=== PATIENT | male | born 1965 | race Caucasian/White ===

== ENCOUNTER 2020-01-06 18:44 | Emergency (ER) | payer MEDICARE, SELFPAY ==
[2020-01-06 18:52] VITALS: BP 170/104; PULSE 110; RESP 28; TEMP 36.5; O2SAT 95; BMI 37.6
--- NOTE | 2020-01-06 19:03 | ED_ITS ---
Entered by Kaylin Wadsworth, acting as scribe for Billy Magallanes DO Jan 06, 2020 18:44 HPI - SOB/Dyspnea General: Chief Complaint: Shortness of Breath/Dyspnea Stated Complaint: cough/sob Time Seen by Provider: 01/06/20 18:53 Source: patient Mode of arrival: ambulatory Limitations: no limitations History of Present Illness: HPI Narrative: 54 yo m came to the er pov for shortness of breath and cough. Onset was dec 02. Pt states that he has been to the doctor alot to try to knock it. Pt said that he coughs so hard somtimes that he feels like he passes out. It is a productive cough with wheezing. MD elicited complaint: shortness of breath and cough Onset (ago): week(s) (5 weeks ago) Timing: constant Severity: mild Exacerbating factors: lying flat Relieving factors: nothing Associated symptoms: Reports chest congestion, cough, dizziness and orthopnea; Deny abdominal pain, chest pain, fever(s), nausea, palpitations or vomiting Treatment prior to arrival: none Related Data: Home oxygen amount: none Review of Systems General: Reports: other (negative unless marked) Const: Denies: fever or chills Eyes: Denies: change in vision or blurry vision ENMT: Reports: post nasal drip; Denies: painful swallowing, swelling of lips/tongue or facial/sinus pain Card: Reports: shortness of breath on exertion and shortness of breath when lying down; Denies: chest pain, palpitations, irregular heart rhythm, edema or swelling of feet/ankles Resp: Reports: productive cough, wheezing and chest congestion GI: Denies: abdominal pain, nausea, vomiting, blood in stool or black tarry stool : Denies: difficulty urinating Musc: Denies: neck pain or back pain Skin/Breast: Denies: rash, itching or redness Neuro: Reports: headache and dizziness; Denies: vertigo or confusion Psych: Denies: anxiety PFSH ED PFSH: Social History Smoking and tobacco status: never smoked Physical Exam Const: GENERAL APPEARANCE: well developed ORIENTATION/CONSCIOUSNESS: Yes oriented to person, Yes oriented to place and Yes oriented to time HENMT: COMMON NORMALS: external ears normal and external nose normal NOSE: external nose normal and no nasal discharge EXTERNAL EAR: Yes external ears normal MOUTH: tongue normal TEETH & GINGIVA: no abnormal tooth and associated gingiva THROAT: posterior oropharynx normal; no peritonsillar mass Eye: COMMON NORMALS: PERRL, EOMs intact bilaterally and conjunctivae normal EYELID: eyelids normal CONJUNCTIVA: Yes conjunctivae normal PUPIL: Yes PERRL Neck/C-Spine: GENERAL: No tracheal deviation Chest: COMMONS NORMALS: inspection of chest normal CHEST: No tenderness Resp: EFFORT & INSPECTION: Yes audible wheezes AUSCULTATION: no rhonchi, wheezes and lung sounds not diminished Cardio: COMMON NORMALS: regular rate and regular rhythm RATE: regular rate RHYTHM: regular rhythm HEART SOUNDS: no murmurs PERIPHERAL PULSES: radial pulses present GI: INSPECTION: No abdominal distension AUSCULTATION: No hyperactive bowel sounds and No hypoactive bowel sounds PALPATION: No guarding and No rigid PERCUSSION: no dullness to percussion and no tympanic to percussion Neuro: SENSORIUM/ORIENTATION: Yes oriented to person, Yes oriented to place and Yes oriented to time Psych: COMMON NORMALS: mental status grossly normal Skin: COMMON NORMALS: no rashes or lesions noted GENERAL SKIN EXAM: no rashes or lesions noted Course Vital Signs: Vital signs: Vital Signs Temperature 97.7 F 01/06/20 18:52 Pulse Rate 101 H 01/06/20 21:06 Respiratory Rate 18 01/06/20 21:06 Blood Pressure 120/97 01/06/20 21:06 Pulse Oximetry 96 01/06/20 21:06 MDM - SOB/Dyspnea MDM Narrative: Medical decision making narrative: Has improved each time he was treated with steroids, then rebounded following discontinuation. He will be treated with doxycycline for 10 days as well as a slow taper of prednisone which I think will help. His chest x-ray is normal. His labs are benign. Lab Data: Labs: Lab Results 01/06/20 01/06/20 01/06/20 Range/Units 19:39 19:53 19:53 WBC 8.0 (4.0-10.0) 10^3/ uL RBC 5.11 (4.1-5.3) 10^6/u L Hgb 14.6 (11.7-16.6) g/dL Hct 44.4 (42.0-52.0) % MCV 86.9 (80-94) fL MCH 28.6 (28.0-34.0) pg MCHC 32.9 (30.0-36.0) g/dL RDW 12.1 (12.1-15.1) % Plt Count 241 (130-400) 10^3/c mm MPV 8.8 (7.4-10.4) fL Neut % (Auto) 53.4 % Lymph % (Auto) 20.9 % Gonzales % (Auto) 8.8 % Eos % (Auto) 16.3 % Baso % (Auto) 0.5 % Neut # (Auto) 4.3 (1.8-7.7) 10^3/u L Lymph # (Auto) 1.7 (0.8-4.8) 10^3/u L Gonzales # (Auto) 0.7 (0.2-0.9) 10^3/u L Eos # (Auto) 1.3 H (0.0-0.8) 10^3/u L Baso # (Auto) 0.0 (0.0-0.1) 10^3/u L Nucleated RBC % (a uto) 0 % Nucleated RBCs # 0.0 /100WBC Sodium 137 (136-145) mmol/L Potassium 4.2 (3.5-5.1) mmol/L Chloride 100 (98-107) mmol/L Carbon Dioxide 24 (22-29) mmol/L Anion Gap 17.2 (5-19) BUN 17 (6-20) mg/dL Creatinine 1.1 (0.7-1.2) mg/dL GFR Calculation 70.0 L (90-130) mL/min Glucose 113 (65-115) mg/dL Calcium 10.1 (8.5-10.5) mg/dL Total Bilirubin 0.3 (0.15-1.2) mg/dL AST 25 (0-40) U/L ALT 30 (0-41) U/L Alkaline Phosphata se 114 (40-130) IU/L NT-Pro-B Natriuret Pep 5 (0-125) pg/mL Total Protein 7.4 (6.6-8.7) g/dL Albumin 4.4 (3.5-5.2) g/dL Globulin 3.0 (1.3-4.6) g/dL Influenza Type A A g Negative (Negative) POC Influenza B Ag Negative (Negative) Discharge Plan Discharge Patient Disposition: Home, Self-Care Clinical Impression: Acute exacerbation of chronic obstructive airways disease Condition: Stable Prescriptions: New prednisone 10 mg tablet 10 mg PO DIRECTED Qty: 50 RF: 0 doxycycline hyclate 100 mg capsule 100 mg PO BID 10 Days Qty: 20 RF: 0 No Action Advair Diskus 250-50 mcg/dose Blister With Device 1 inh INHALATION BID RF: 0 levothyroxine 50 mcg Tablet 50 mcg PO DAILY RF: 0 ibuprofen 200 mg Tablet 400 mg PO DAILY RF: 0 albuterol sulfate 90 mcg/actuation Hfa Aerosol Inhaler 1 inh INHALATION QID PRN (Reason: Shortness Of Breath) RF: 0 Discharge Orders: Discharge Order (Routine); Ordered 01/06/20 Ordered By: Billy Magallanes Referrals: Elena Cardoso MD [Primary Care Provider] - 4-7 days Discharge Diet: Usual diet Discharge Activity: Increase activity as tolerated Patient Instructions: Acute Bronchitis (ED) Discharge Date/Time: 01/06/20 21:06 Coding Level of Care Code ED Administrative Fellow for Chg Fwd Exam Problem Focused The documentation recorded by the Ananth nicole Stephanie Lyn, dinesh wallis flects the service I personally performed and the decisions made by Elpidio hernandez Jeremy John, DO Jan 06, 2020 18:44
--- NOTE | 2020-01-06 19:19 | ECG_ITS ---
Measurements Intervals [place] Rate: 102 P: 59 [place]: 158 QRS: 55 QRSD: 103 T: 55 QT: 325 QTc: 425 SINUS TACHYCARDIA ABNORMAL RHYTHM ECG No previous ECG available for comparison Electronically Signed On 01-07-2020 19:46:31 CDT by Isidro Brown M.D. [email or web address]
--- NOTE | 2020-01-06 19:20 | XR_ITS ---
WS: [id number] XR chest 2V* [id number] REASON FOR EXAM: cough FINDINGS: The heart and mediastinal interfaces are normal. Lung hernandez are well aerated. No pneumonia, pleural effusion, pulmonary edema, or mass effect. No pneumothorax. The hilum and apices normal. No osseous abnormalities. A small calcified granulomas seen in the right lower lung There is previous rib fractures and the lower left chest. XR/XR chest 2V* [id number] IMPRESSION: Negative chest for active pathology.
[2020-01-06] MEDS: ipratropium-albuterol 3 mL Neb INHALATION (19:45)
[2020-01-06 19:46] VITALS: PULSE 116; RESP 22; O2SAT 95
[2020-01-06 19:52] VITALS: BP 140/71; PULSE 122; RESP 20; O2SAT 95
[2020-01-06 19:54] VITALS: PULSE 113; RESP 20; O2SAT 93
[2020-01-06 19:58] LABS: Basophils % 0.5 %; Eosinophils # 1.3 10^3/uL (0.0-0.8); Eosinophils % 16.3 %; Hematocrit 44.4 % (42.0-52.0); Hemoglobin 14.6 g/dL (11.7-16.6); Lymphocytes # 1.7 10^3/uL (0.8-4.8); Lymphocytes % 20.9 %; Mean Corpuscular HGB Conc 32.9 g/dL (30.0-36.0); Mean Corpuscular Hemoglobin 28.6 pg (28.0-34.0); Mean Corpuscular Volume 86.9 fL (80-94); Mean Platelet Volume 8.8 fL (7.4-10.4); Monocytes # 0.7 10^3/uL (0.2-0.9); Monocytes % 8.8 %; Neutrophils # 4.3 10^3/uL (1.8-7.7); Neutrophils % 53.4 %; Nucleated Red Blood Cells % 0 %; Platelet Count 241 10^3/cmm (130-400); Red Blood Count 5.11 10^6/uL (4.1-5.3); Red Cell Distribution Width 12.1 % (12.1-15.1)
[2020-01-06 20:17] LABS: Influenza A by IFA Negative (Negative); Influenza B by IFA Negative (Negative)
[2020-01-06 20:24] LABS: Alanine Aminotransferase 30 U/L (0-41); Albumin Level 4.4 g/dL (3.5-5.2); Alkaline Phosphatase 114 IU/L (40-130); Anion Gap 17.2 (5-19); Aspartate Amino Transferase 25 U/L (0-40); Blood Urea Nitrogen 17 mg/dL (6-20); Calcium 10.1 mg/dL (8.5-10.5); Carbon Dioxide 24 mmol/L (22-29); Chloride 100 mmol/L (98-107); Glucose 113 mg/dL (65-115); NT Pro B Type Natriuretic Pept 5 pg/mL (0-125); Potassium 4.2 mmol/L (3.5-5.1); Sodium 137 mmol/L (136-145); Total Bilirubin 0.3 mg/dL (0.15-1.2); Total Protein 7.4 g/dL (6.6-8.7)
[2020-01-06] MEDS: doxycycline 100 mg Tablet PO (20:58)
[2020-01-06 21:00] VITALS: BP 120/87; RESP 106; O2SAT 94
[2020-01-06 21:06] VITALS: BP 120/97; PULSE 101; RESP 18; O2SAT 96
== END 2020-01-06 21:06 | disposition home or self-care (01) ==
PROVIDERS: Emergency Provider Emergency Medicine; Family Provider Internal Medicine; PCP Internal Medicine
DX: J44.1 Chronic obstructive pulmonary disease with (acute) exacerbation (principal); R00.0 Tachycardia, unspecified; R94.31 Abnormal electrocardiogram [ECG] [EKG]
CPT/HCPCS: 12345; 36415; 71046; 80053; 83880; 85025; 87804; 93005; 94640; 96374; 96375; 99283; J2930

== ENCOUNTER 2020-02-29 21:08 | Emergency (ER) | payer MEDICARE, SELFPAY ==
[2020-02-29 21:25] VITALS: BP 154/92; PULSE 101; RESP 14; TEMP 37.7; O2SAT 94; BMI 36.2
--- NOTE | 2020-02-29 21:30 | XR_ITS ---
WS: [id number] PORTABLE CHEST HISTORY: cough COMPARISON: 01/06/2020 Benign granuloma RIGHT lung base. Otherwise lungs are clear. No pleural effusion or pneumothorax. Cardiac size: Normal. Mediastinum/Aorta: Normal mediastinum. No osseous abnormality seen. XR/XR chest 1V portable [id number] IMPRESSION: Unremarkable portable chest.
--- NOTE | 2020-02-29 21:48 | ED_ITS ---
HPI - SOB/Dyspnea General: Chief Complaint: Shortness of Breath/Dyspnea Stated Complaint: sob Time Seen by Provider: 02/29/20 21:30 History of Present Illness: HPI Narrative: Foreign is a nice 55-year-old male who comes in complaining of a flareup of his chronic bronchitis. He states he has a cough productive of green sputum and wheezing. He states this is been going on for the past several days. 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 He denies any fever or chills. He has no chest pain. He is really not short of breath he just hears himself wheezing and his cough is worse than normal. Breathing treatments at home have helped but have not resolved his symptoms. He again denies any fever. He denies any chest pain. He is requesting steroids at this time so that he can get better as that is what it is taken in the past. Associated symptoms: Deny abdominal pain, chest pain, diaphoresis, dizziness, extremity pain, fever(s), hemoptysis, nausea, orthopnea, palpitations, polydipsia, syncope or vomiting Review of Systems General: Reports: other (negative unless marked) Const: Denies: fever, chills, body aches, fatigue, malaise or diaphoresis Eyes: Denies: change in vision or blurry vision ENMT: Denies: throat pain, painful swallowing, hoarseness, ear pain, ear discharge, Change in hearing or nasal discharge Card: Denies: chest pain, palpitations, irregular heart rhythm, syncope, pre- syncope, shortness of breath on exertion or shortness of breath when lying down Resp: Reports: productive cough and wheezing; Denies: shortness of breath, non-productive cough or coughing up blood GI: Denies: abdominal pain, nausea, vomiting, vomiting blood, coffee grounds in vomit, diarrhea, constipation, cramping, blood in stool or black tarry stool : Denies: flank pain, difficulty urinating, painful urination, urinary frequency, urinary urgency, decreased urine ouput, urinary incontinence or blood in urine Musc: Denies: neck pain, back pain, extremity pain, extremity swelling, joint pain, joint swelling, joint warmth or joint stiffness Skin/Breast: Denies: rash, skin tenderness or yellow skin Neuro: Denies: headache, numbness in extremities, weakness in extremities, changes in sensation, lack of coordination, difficulty walking, dizziness, vertigo or confusion Endo: Denies: excessive thirst, tired all the time, cold intolerance, excessive sweating, flushing or hot flashes Jonathan/Lymph: Denies: easy bruising, easy bleeding, petechiae or enlarged lymph nodes All/Imm: Denies: hives, throat swelling, tongue swelling, facial swelling or acute wheezing PFSH ED PFSH: Medical History COPD (chronic obstructive pulmonary disease) Hypothyroidism Social History Smoking and tobacco status: never smoked Physical Exam Const: COMMON NORMALS: no apparent distress, oriented x3, no limitations, healthy appearing and well nourished EXAM LIMITATIONS: no altered mental status GENERAL APPEARANCE: cooperative, well kempt and well developed ORIENTATION/CONSCIOUSNESS: Yes awake HENMT: COMMON NORMALS: normocephalic, head/scalp atraumatic, hearing grossly normal bilaterally, external ears normal, EAC's normal, external nose normal and moist oral mucous membranes HEAD & SCALP: normal to inspection, normocephalic and atraumatic FACE & SINUS: normal facial exam and face symmetric NOSE: external nose normal and nares normal EXTERNAL EAR: Yes external ears normal EXTERNAL AUDITORY CANAL: EAC's normal MOUTH: oral and palatal mucosa normal and tongue normal Eye: COMMON NORMALS: PERRL, EOMs intact bilaterally, conjunctivae normal and no scleral icterus GENERAL EYE: normal appearance of both eyes and normal light reflex CONJUNCTIVA: Yes conjunctivae normal SCLERA: sclerae normal CORNEA: Yes corneas normal PUPIL: Yes PERRL DIRECT OPHTHALMOSCOPY: Yes normal light reflex Neck/C-Spine: COMMON NORMALS: full ROM, no lymphadenopathy, supple, no meningeal signs and no JVD GENERAL: Yes normal visual inspection and Yes trachea midline CERVICAL SPINE: Yes cervical ROM normal Chest: COMMONS NORMALS: inspection of chest normal and palpation of chest normal Resp: COMMON NORMALS: normal respiratory effort, no retractions and no use of accessory muscles EFFORT & INSPECTION: Yes able to speak in complete sentences and Yes audible wheezes AUSCULTATION: rhonchi and wheezes Cardio: COMMON NORMALS: no JVD, regular rate, regular rhythm, S1 normal heart sound, S2 normal heart sound, no gallops, no clicks, no murmurs and no rub JUGULAR VENOUS DISTENTION: no JVD RATE: regular rate RHYTHM: regular rhythm HEART SOUNDS: S1 normal and S2 normal GI: COMMON NORMALS: soft to palpation, non-tender, no hepatosplenomegaly and no masses INSPECTION: Yes normal to inspection PALPATION: Yes soft and Yes no hepatosplenomegaly : COMMON NORMALS: Yes no CVA tenderness BLADDER/KIDNEY EXAM: Yes no CVA tenderness Back/Pelvis: COMMON NORMALS: no CVA tenderness, thoracic and lumbar spine normal to inspection, no thoracic nor lumbar tenderness and thoraco-lumbar ROM normal Extremity: COMMON NORMALS: normal to inspection, full ROM, normal capillary r efill, no joint enlargement, no clubbing, cyanosis or edema and no calf tenderness Neuro: COMMON NORMALS: oriented x3, CN's II-XII intact bilaterally, moves all extremities, no focal motor deficits and no sensory deficits noted MENINGEAL SIGNS: Yes no meningeal signs Psych: COMMON NORMALS: mental status grossly normal, thought process normal, cooperative, affect normal, speech normal and activity/motor behavior normal APPEARANCE: Yes well kempt SPEECH: Yes normal speech THOUGHT PROCESS: normal thought process Skin: COMMON NORMALS: no rashes or lesions noted, skin turgor normal, no jaundice, no petechiae and no mottling GENERAL SKIN EXAM: no rashes or lesions noted and turgor normal Course Vital Signs: Vital signs: Vital Signs Temperature 99.8 F H 02/29/20 21:25 Pulse Rate 88 02/29/20 23:15 Respiratory Rate 16 02/29/20 23:15 Blood Pressure 134/86 02/29/20 23:15 Pulse Oximetry 98 02/29/20 23:15 MDM - SOB/Dyspnea MDM Narrative: Medical decision making narrative: Mr. Leyva is a very nice 55-year-old male who comes in complaining of a cough productive of green sputum which is a change from his baseline. He has wheezing but that is improved with a breathing treatment here. He declines any cardiac work-up and believes he could just go home with some steroids and an antibiotic. I will place him on doxycycline, prednisone and he Myles has an inhaler at home that he is using more frequently. He understands he is welcome to return should his symptoms change or worsen or he want further evaluation and care. Imaging Data^: CXR: My impression: No acute cardiopulmonary findings. No focal infiltrates. EKG Data^: EKG 1: Attestation: I personally reviewed and interpreted this EKG as follows: EKG Interpretation Date: 02/29/20 EKG interpretation time: 22:29 Interpretation: Normal sinus rhythm at 91 beats a minute, normal intervals, no blocks. PVC present. No acute ST or T wave changes. Discharge Plan Discharge Patient Disposition: Home, Self-Care Clinical Impression: COPD (chronic obstructive pulmonary disease) Qualifiers: COPD type: chronic bronchitis Chronic bronchitis type: mucopurulent Qualified Code(s): J41.1 - Mucopurulent chronic bronchitis Condition: Stable Prescriptions: New doxycycline hyclate 100 mg capsule 100 mg PO BID 10 Days Qty: 20 RF: 0 prednisone 10 mg tablets,dose pack See Rx Instructions .ROUTE .COMPLEX Qty: 21 RF: 0 No Action Advair Diskus 250-50 mcg/dose Blister With Device 1 inh INHALATION BID RF: 0 levothyroxine 50 mcg Tablet 50 mcg PO DAILY RF: 0 ibuprofen 200 mg Tablet 400 mg PO DAILY RF: 0 albuterol sulfate 90 mcg/actuation Hfa Aerosol Inhaler 1 inh INHALATION QID PRN (Reason: Shortness Of Breath) RF: 0 prednisone 10 mg tablet 10 mg PO DIRECTED Qty: 50 RF: 0 Discharge Orders: Discharge Order (Routine); Ordered 02/29/20 Ordered By: Helga Dailey Referrals: Elena Cardoso MD [Primary Care Provider] - 1-3 days Discharge Diet: Advance as tolerated Discharge Activity: Increase activity as tolerated Patient Instructions: Chronic Obstructive Pulmonary Disease (ED), Chronic Bronchitis (ED) Activity Restrictions/Additional Instructions: Please return to the ER immediately for any of the signs or symptoms listed on your discharge instruction sheets, worsening/changing of your symptoms, you are not getting better as quickly as expected, or for ANY other cause or concerns. Discharge Date/Time: 02/29/20 23:18 Coding Level of Care Code ED Salesperson [employer] for Chg Fwd Exam Comprehensive
[2020-02-29 22:00] VITALS: PULSE 98; RESP 20; O2SAT 95
[2020-02-29] MEDS: ipratropium-albuterol 3 mL Neb 9 ML INHALATION (22:00)
[2020-02-29 22:03] VITALS: PULSE 100
--- NOTE | 2020-02-29 22:33 | PC.NURSE ---
EKG done at 2225 and shown to ER doctor.
[2020-02-29 22:55] VITALS: BP 134/88; PULSE 88; RESP 16; O2SAT 98
[2020-02-29] MEDS: predniSONE 20 mg Tablet 60 MG PO (23:05)
[2020-02-29] MEDS: ondansetron 4 MG Tablet PO (23:06)
[2020-02-29] MEDS: doxycycline 100 mg Tablet 200 MG PO (23:06)
[2020-02-29 23:15] VITALS: BP 134/86; PULSE 88; RESP 16; O2SAT 98
--- NOTE | 2020-02-29 23:31 | ECG_ITS ---
Measurements Intervals [place] Rate: 91 P: 52 [place]: 158 QRS: 46 QRSD: 98 T: 4 QT: 350 QTc: 433 SINUS RHYTHM WITH OCCASIONAL VENTRICULAR PREMATURE COMPLEXES Compared to ECG 01/06/2020 19:36:38 Ventricular premature complex(es) now present Sinus tachycardia no longer present Electronically Signed On 03-01-2020 15:55:47 CDT by Em Bowman M.D. [id number]
== END 2020-02-29 23:18 | disposition home or self-care (01) ==
PROVIDERS: Emergency Provider Emergency Medicine; Family Provider Internal Medicine; PCP Internal Medicine
DX: J41.1 Mucopurulent chronic bronchitis (principal); E03.9 Hypothyroidism, unspecified
CPT/HCPCS: 12345; 71045; 93005; 94640; 99281; 99283; J7512; Q0162

== ENCOUNTER 2020-06-22 13:54 | Emergency (ER) | payer MEDICARE, SELFPAY ==
[2020-06-22 14:22] VITALS: BP 130/87; PULSE 98; RESP 16; TEMP 36.8; O2SAT 95; BMI 40.4
--- NOTE | 2020-06-22 15:00 | W.ED.SKABFB ---
HPI - Skin/Abscess/Foreign Bdy General: Chief complaint: Skin/Abscess/Foreign Body Stated complaint: shingles Time Seen by Provider: 06/22/20 14:30 Source: patient Mode of arrival: ambulatory Limitations: no limitations History of Present Illness: HPI narrative: shingles to left eye/periorbital area Review of Systems General: Reports: 10 or more systems reviewed and unremarkable except in HPI and below Eyes: Reports: photophobia and eye discomfort (left eye) PFSH ED PFSH: Medical History COPD (chronic obstructive pulmonary disease) Hypothyroidism Social History Smoking and tobacco status: never smoked Alcohol intake: never Substance/Drug Use: never Physical Exam Const: COMMON NORMALS: no acute distress, patient oriented x3, no limitations and alert GENERAL APPEARANCE: cooperative and comfortable ORIENTATION/CONSCIOUSNESS: Yes awake, Yes oriented to person, Yes oriented to place and Yes oriented to time HENMT: COMMON NORMALS: normocephalic, atraumatic, external ears normal, EAC's normal, TM's normal bilaterally and Normal external nose present HEAD & SCALP: normal to inspection, normocephalic and atraumatic FACE & SINUS: normal facial exam, sinuses nontender and face symmetric NOSE: Normal external nose present, Normal nares present and No nasal discharge present EXTERNAL EAR: Yes external ears normal EXTERNAL AUDITORY CANAL: EAC's normal TYMPANIC MEMBRANE: TM's normal bilaterally MOUTH: Normal oral and palatal mucosa present, lip normal and tongue normal THROAT: posterior oropharynx normal, tonsils normal and uvula midline Eye: COMMON NORMALS: Equal, round and reactive pupils present VISUAL ACUITY: Yes acuity normal EYELID: eyelid abnormality left lower eyelid erythema, swelling and tenderness SCLERA: scleral abnormal Laterality of scleral abnormality: positive left scleral injection (grade 2) and scleral tenderness; Negative for foreign body CORNEA: Yes fluorescein used PUPIL: Yes Equal, round and reactive pupils present EOM: No movement deficit Neck/C-Spine: COMMON NORMALS: full ROM, no lymphadenopathy, supple, no meningeal signs, no JVD and Thyroid normal GENERAL: Yes normal visual inspection THYROID: Thyroid normal CERVICAL SPINE: Yes cervical ROM normal and Yes normal cervical lordosis Lymph: LYMPHATIC: no lymphadenopathy noted Chest: COMMONS NORMALS: normal inspection of the chest and normal palpation of entire chest wall Resp: COMMON NORMALS: normal respiratory effort, No retractions and clear to auscultation bilaterally AUSCULTATION: clear to auscultation bilaterally Cardio: COMMON NORMALS: no JVD, regular rate, regular rhythm, S1 normal heart sound present, S2 normal heart sound present, No gallops present (Cardio), No clicks present (Cardio), No murmurs present (Cardio), No rub (Cardio) and Peripheral pulses 2+ throughout RATE: regular rate RHYTHM: regular rhythm HEART SOUNDS: S1 normal heart sound present and S2 normal heart sound present PERIPHERAL PULSES: Peripheral pulses 2+ throughout GI: COMMON NORMALS: Normal to inspection, nondistended, normoactive bowel sounds present, Soft to palpation, non-tender and no masses PALPATION: Yes Soft to palpation : COMMON NORMALS: Yes no CVA tenderness BLADDER/KIDNEY EXAM: Yes no CVA tenderness Back/Pelvis: COMMON NORMALS: no CVA tenderness, thoracic and lumbar spine normal to inspection, no thoracic nor lumbar tenderness and thoraco-lumbar ROM normal Extremity: COMMON NORMALS: normal to inspection, full ROM, capillary refill normal, no joint enlargement, no clubbing, cyanosis or edema, no calf tenderness and no pedal edema GENERAL: Yes normal exam except as noted Neuro: COMMON NORMALS: patient oriented x3, moves all extremities, no focal motor deficits, no sensory deficits noted and gait normal SENSORIUM/ORIENTATION: Yes alert, Yes oriented to person, Yes oriented to place and Yes oriented to time MENINGEAL SIGNS: Yes no meningeal signs Psych: COMMON NORMALS: mental status grossly normal, Normal thought process present, cooperative, normal affect, speech normal and activity/motor behavior normal SPEECH: Yes normal speech THOUGHT PROCESS: Normal thought process present Skin: COMMON NORMALS: no rashes or lesions noted, no wounds and turgor normal GENERAL SKIN EXAM: no rashes or lesions noted and turgor normal Course ED course: Pt presents with left eye pain and swelling. Was diagnosed with shingles yesterday per PCP and eye exam was performed. Worsening today per family. Pt is on prednisone and valcyclovir. Call out to Dr. Stephenson, optomology for further consult. Will do eye exam under redd's lamp and steroid eye drops likely. Reevaluation(s): Reevaluation #1: Eye exam shows mild sclera interjection. Will add steroid drops and IM steroid with follow up with Dr. Stephenson office on Wednesday. Pt will need to call. 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
[2020-06-22] MEDS: tetracaine 0.5% Op Soln 4 mL Btl 1 DROP EYE-LEFT (15:50)
[2020-06-22] MEDS: eye irrigation 30 mL Btl EYE-LEFT (15:50)
[2020-06-22] MEDS: fluorescein 1 mg Strip EYE-LEFT (15:50)
--- NOTE | 2020-06-22 16:17 | PC.NURSE ---
Read and agree with assessment.
[2020-06-22] MEDS: dexamethasone 10 mg/mL INJ IM (16:42)
[2020-06-22 16:43] VITALS: BP 157/89; PULSE 90; RESP 16; TEMP 36.6; O2SAT 94
== END 2020-06-22 16:44 | disposition home or self-care (01) ==
PROVIDERS: Emergency Provider Nurse Practitioner Family; PCP Internal Medicine
DX: B02.39 Other herpes zoster eye disease (principal); J44.9 Chronic obstructive pulmonary disease, unspecified
CPT/HCPCS: 12345; 96372; 96375; 99281; 99283; J1100

== ENCOUNTER 2020-07-13 16:41 | Emergency (ER) | payer MEDICARE, SELFPAY ==
--- NOTE | 2020-07-13 16:56 | W.ED.EYEPROB ---
Documented by User: Carlo Arteaga DO 07/16/20 16:40 HPI - Eye Problem General: Chief complaint: Eye Problems Stated complaint: L EYE PAIN POST SHINGLES Time Seen by Provider: 07/13/20 16:55 History of Present Illness: HPI Narrative: 55-year-old male presents with complaint of IV pain he recently had shingles he has completed the course of antivirals. The vesicular lesions are healing up he did have some swelling around his eye there is a concern about being on the cornea and he was seen by an eye doctor he had recent follow-up just 2 to 3 days ago and there is no evidence of corneal involvement they did put him on some neomycin eyedrops this afternoon he had a sudden sharp eye pain that radiated up into his head down into his chest and lasted for about 10 to 15 minutes. He states his eye is still hurting him but is significantly decreased. MD chief complaint: eye pain Onset (ago): minute(s) Onset description: sudden Duration: intermittent Location: right eye Eye Symptoms: pain Place: home Severity: severe If Pain, Quality: burning Context: other (Recent varicella-zoster) Associated symptoms: Denies cough, fever(s), headache(s), nausea, neck pain, numbness, rhinorrhea, short of breath, vomiting or weakness Review of Systems Const: Denies: fever(s), chills, body aches, fatigue, malaise or night sweats Eyes: Denies: change in vision or blurry vision ENMT: Denies: throat pain, oral sores, dental pain, nasal discharge or nasal congestion Card: Denies: chest pain, palpitations, irregular heart rhythm, edema, syncope, dyspnea on exertion, orthopnea or leg pain with exertion Resp: Denies: dyspnea, productive cough, non-productive cough or wheezing GI: Denies: abdominal pain, nausea, vomiting, hematemesis, coffee ground emesis, dysphagia, heartburn, diarrhea, constipation, GI cramping, hematochezia or melena : Denies: flank pain, difficulty urinating, dysuria, urinary frequency, urinary urgency, urinary incontinence or hematuria Musc: Denies: neck pain, back pain, extremity pain, extremity swelling, joint pain or joint swelling Skin/Breast: Denies: rash, pruritus or erythema Neuro: Denies: headache(s), numbness in extremities, weakness in extremities, sensory changes, lack of coordination, difficulty walking, frequent falls, dizziness, vertigo or confusion Psych: Denies: anxiety, depression, loss of interest, visual hallucinations, auditory hallucinations, suicidal ideation or homicidal ideation Endo: Denies: polyuria, polydipsia, tired all the time or cold intolerance Jonathan/Lymph: Denies: easy bruising, easy bleeding, petechiae, enlarged lymph nodes or tender lymph nodes PFSH ED PFSH: Medical History COPD (chronic obstructive pulmonary disease) Hypothyroidism Social History Smoking and tobacco status: never smoked Alcohol intake: never Physical Exam Const: COMMON NORMALS: no acute distress GENERAL APPEARANCE: cooperative and comfortable ORIENTATION/CONSCIOUSNESS: Yes awake, Yes oriented to person, Yes oriented to place and Yes oriented to time HENMT: COMMON NORMALS: normocephalic, atraumatic and hearing grossly normal bilaterally HEAD & SCALP: normocephalic and atraumatic Eye: COMMON NORMALS: Equal, round and reactive pupils present, EOMs intact bilaterally, conjunctivae normal and no scleral icterus CONJUNCTIVA: Yes conjunctivae normal PUPIL: Yes Equal, round and reactive pupils present OTHER: No evidence of scleral conjunctivae involvement Neck/C-Spine: COMMON NORMALS: full ROM, no lymphadenopathy, supple and no JVD Lymph: LYMPHATIC: no lymphadenopathy noted and no lymphedema noted Resp: COMMON NORMALS: normal respiratory effort, No retractions, No use of accessory muscles and clear to auscultation bilaterally AUSCULTATION: clear to auscultation bilaterally Cardio: COMMON NORMALS: no JVD, regular rate, regular rhythm and No murmurs present (Cardio) RATE: regular rate RHYTHM: regular rhythm GI: COMMON NORMALS: Soft to palpation and No hepatosplenomegaly present AUSCULTATION: Yes normoactive bowel sounds PALPATION: Yes Soft to palpation, No Tenderness to palpation present (GI), No Guarding due to palpation present (GI) and Yes No hepatosplenomegaly present Extremity: COMMON NORMALS: normal to inspection, capillary refill normal, no clubbing, cyanosis or edema, no calf tenderness and no pedal edema Neuro: SENSORIUM/ORIENTATION: Yes oriented to person, Yes oriented to place and Yes oriented to time Skin: NARRATIVE SKIN EXAM: Resolving dermatomal pattern of the prolonged zygomatic branches of the facial nerve. Course Vital Signs: Vital signs: Vital Signs Temperature 98.2 F 07/13/20 17:04 Pulse Rate 86 07/13/20 17:04 Respiratory Rate 16 07/13/20 17:45 Blood Pressure 147/101 07/13/20 17:45 Pulse Oximetry 96 07/13/20 17:45 MDM - Eye Problem MDM Narrative: Medical decision making narrative: Will get troponin EKG and chest x-ray to evaluate episode of chest pain I think it is referred chest pain from the eye. Care turned over to Dr. Steele at change of shift please see his notes for definitive diagnosis and disposition Lab Data: Labs: Lab Results 07/13/20 07/13/20 07/13/20 Range/Units 17:44 17:44 17:44 WBC 5.5 (4.0-10.0) 10^3/ uL RBC 4.94 (4.1-5.3) 10^6/u L Hgb 14.6 (11.7-16.6) g/dL Hct 44.2 (42.0-52.0) % MCV 89.5 (80-94) fL MCH 29.6 (28.0-34.0) pg MCHC 33.0 (30.0-36.0) g/dL RDW 12.1 (12.1-15.1) % Plt Count 184 (130-400) 10^3/c mm MPV 9.2 (7.4-10.4) fL Neut % (Auto) 62.5 % Lymph % (Auto) 22.3 % Faulkner % (Auto) 9.0 % Eos % (Auto) 5.5 % Baso % (Auto) 0.5 % Neut # (Auto) 3.42 (1.8-7.7) 10^3/u L Lymph # (Auto) 1.2 (0.8-4.8) 10^3/u L Faulkner # (Auto) 0.5 (0.2-0.9) 10^3/u L Eos # (Auto) 0.3 (0.0-0.8) 10^3/u L Baso # (Auto) 0.0 (0.0-0.1) 10^3/u L Nucleated RBC % (a uto) 0 % Nucleated RBCs # 0.0 /100WBC Sodium 134 L (136-145) mmol/L Potassium 4.0 (3.5-5.1) mmol/L Chloride 100 (98-107) mmol/L Carbon Dioxide 23 (22-29) mmol/L Anion Gap 15.0 (5-19) BUN 12 (6-20) mg/dL Creatinine 0.7 (0.7-1.2) mg/dL GFR Calculation 117.5 (90-130) mL/min Glucose 160 H (65-115) mg/dL Calculated Osmolal ity 278 L (285-295) mOsm/k g Calcium 9.1 (8.5-10.5) mg/dL Total Bilirubin 0.3 (0.15-1.2) mg/dL AST 29 (0-40) U/L ALT 57 H (0-41) U/L Alkaline Phosphata se 99 (40-130) IU/L Troponin T Baselin e 8 (0-15) ng/L Total Protein 7.0 (6.6-8.7) g/dL Albumin 4.6 (3.5-5.2) g/dL Globulin 2.4 (1.3-4.6) g/dL Discharge Plan Discharge Patient Disposition: Home Clinical Impression: Herpes zoster cephalicus Chest pain Qualifiers: Chest pain type: unspecified Qualified Code(s): R07.9 - Chest pain, unspecified Condition: Stable Prescriptions: No Action fluticasone propion-salmeterol [Advair Diskus] 250-50 mcg/dose Blister With Device 1 inh INHALATION BID RF: 0 levothyroxine 50 mcg Tablet 50 mcg PO DAILY RF: 0 ibuprofen 200 mg Tablet 400 mg PO DAILY RF: 0 albuterol sulfate 90 mcg/actuation Hfa Aerosol Inhaler 1 inh INHALATION QID PRN (Reason: Shortness Of Breath) RF: 0 Stomach Relief 1 tab PO DAILY RF: 0 Discharge Orders: Discharge Order (Routine); Ordered 07/13/20 Ordered By: Helga Dailey Referrals: Shoaib Stephenson MD [Physician] - 1-3 days Elena Cardoso MD [Primary Care Provider] - 1-3 days Discharge Diet: Usual diet Discharge Activity: Resume usual activity Patient Instructions: Chest Pain (ED), Herpes Zoster (ED) Activity Restrictions/Additional Instructions: Please return to the ER immediately for any of the signs or symptoms listed on your discharge instruction sheets, worsening/changing of your symptoms, you are not getting better as quickly as expected, or for ANY other cause or concerns. If you develop chest pain again, you pass out or nearly pass out, or you have any new symptoms that are concerning please return to the ER immediately for recheck and further evaluation and care. Discharge Date/Time: 07/13/20 18:48 Sign Out Sign Out Data: Patient Sign Out occurred on 07/13/20 at 18:15. Patient's care was discussed, and care was transferred from to Helga Dailey. Coding Level of Care Code ED Payroll Administrative Assistant for Chg Fwd Exam Comprehensive Documented by User: Helga Dailey 07/13/20 18:46 HPI - Eye Problem General: Chief complaint: Eye Problems Stated complaint: L EYE PAIN POST SHINGLES Time Seen by Provider: 07/13/20 16:55 PFSH ED PFSH: Medical History COPD (chronic obstructive pulmonary disease) Hypothyroidism Social History Smoking and tobacco status: never smoked Alcohol intake: never Physical Exam Eye: COMMON NORMALS: Equal, round and reactive pupils present, EOMs intact bilaterally, no scleral icterus and normal visual marques by confrontation GENERAL EYE: normal light reflex VISUAL ACUITY: Yes acuity normal VISUAL MARQUES: No peripheral vision loss and No central vision loss ALIGNMENT: Yes alignment normal EYELID: eyelid abnormality (Mild swelling left upper lid) CONJUNCTIVA: Yes conjunctival abnormal positive left (Mild injection) SCLERA: sclerae normal CORNEA: Yes corneas normal PUPIL: Yes Equal, round and reactive pupils present and No Pupils anisocoria DIRECT OPHTHALMOSCOPY: Yes normal light reflex SLIT LAMP EXAM: Yes slit lamp exam performed with fluorescein and Yes cornea (No dendritic findings present.) Cornea details: normal appearing Course Vital Signs: Vital signs: Vital Signs Temperature 98.2 F 07/13/20 17:04 Pulse Rate 86 07/13/20 17:04 Respiratory Rate 16 07/13/20 17:45 Blood Pressure 147/101 07/13/20 17:45 Pulse Oximetry 96 07/13/20 17:45 MDM - Eye Problem MDM Narrative: Medical decision making narrative: 1824 -case inherited by me at change of shift from Dr. Arteaga. Please see his note for his history, physical exam and medical decision-making notes. Patient states that he has had a zoster infection of the first trigeminal nerve root for the approximately the past 2 to 3 weeks. He has been seen twice by the [facility] in [place] and no evidence of corneal involvement was found. The most recent visit was 2 days ago. He states his eye does not hurt anymore or less than it has since this episode started. The only time it was different was today during the episode that he had here. He states he had a pain that was a burning pain deep in his eye that referred up the left side of his head and then down his neck into the superior portion of the clavicle on the left side of his chest. He states the symptoms lasted 2 to 3 minutes and then resolved completely. He denies any blurry vision, double vision or vision loss. He states his vision has been progressively improving since this entire thing started. 1844 -patient's lab and EKG are normal. His chest x-ray is normal. He does not believe this is come from his chest. He believes this is just some strange manifestation of his herpes zoster ophthalmicus. Slit-lamp exam and ophthalmologic exam does not reveal any evidence of dendrite lesion. His cornea appears normal. His family is present with him states his eye appearance is no different than normal. He states other than this strange pain he had for a few minutes he feels like his eye is progressively getting better. Patient declines any further observation care would like to be discharged. I see no sign of acute life or limb or eye threatening lesion at this time. Lab Data: Labs: Lab Results 07/13/20 07/13/20 07/13/20 Range/Units 17:44 17:44 17:44 WBC 5.5 (4.0-10.0) 10^3/ uL RBC 4.94 (4.1-5.3) 10^6/u L Hgb 14.6 (11.7-16.6) g/dL Hct 44.2 (42.0-52.0) % MCV 89.5 (80-94) fL MCH 29.6 (28.0-34.0) pg MCHC 33.0 (30.0-36.0) g/dL RDW 12.1 (12.1-15.1) % Plt Count 184 (130-400) 10^3/c mm MPV 9.2 (7.4-10.4) fL Neut % (Auto) 62.5 % Lymph % (Auto) 22.3 % Faulkner % (Auto) 9.0 % Eos % (Auto) 5.5 % Baso % (Auto) 0.5 % Neut # (Auto) 3.42 (1.8-7.7) 10^3/u L Lymph # (Auto) 1.2 (0.8-4.8) 10^3/u L Faulkner # (Auto) 0.5 (0.2-0.9) 10^3/u L Eos # (Auto) 0.3 (0.0-0.8) 10^3/u L Baso # (Auto) 0.0 (0.0-0.1) 10^3/u L Nucleated RBC % (a uto) 0 % Nucleated RBCs # 0.0 /100WBC Sodium 134 L (136-145) mmol/L Potassium 4.0 (3.5-5.1) mmol/L Chloride 100 (98-107) mmol/L Carbon Dioxide 23 (22-29) mmol/L Anion Gap 15.0 (5-19) BUN 12 (6-20) mg/dL Creatinine 0.7 (0.7-1.2) mg/dL GFR Calculation 117.5 (90-130) mL/min Glucose 160 H (65-115) mg/dL Calculated Osmolal ity 278 L (285-295) mOsm/k g Calcium 9.1 (8.5-10.5) mg/dL Total Bilirubin 0.3 (0.15-1.2) mg/dL AST 29 (0-40) U/L ALT 57 H (0-41) U/L Alkaline Phosphata se 99 (40-130) IU/L Troponin T Baselin e 8 (0-15) ng/L Total Protein 7.0 (6.6-8.7) g/dL Albumin 4.6 (3.5-5.2) g/dL Globulin 2.4 (1.3-4.6) g/dL Imaging Data^: CXR: Attestation: I personally reviewed and interpreted this imaging study as follows: My impression: No acute cardiopulmonary findings. EKG Data^: EKG 1: Attestation: I personally reviewed and interpreted this EKG as follows: EKG interpretation date: 07/13/20 EKG interpretation time: 17:49 Interpretation: Normal sinus rhythm with a ventricular rate of 85 beats a minute, no blocks, normal intervals, normal axis, nonspecific ST and T wave changes. Discharge Plan Discharge Patient Disposition: Home Clinical Impression: Herpes zoster cephalicus Chest pain Qualifiers: Chest pain type: unspecified Qualified Code(s): R07.9 - Chest pain, unspecified Condition: Stable Prescriptions: No Action fluticasone propion-salmeterol [Advair Diskus] 250-50 mcg/dose Blister With Device 1 inh INHALATION BID RF: 0 levothyroxine 50 mcg Tablet 50 mcg PO DAILY RF: 0 ibuprofen 200 mg Tablet 400 mg PO DAILY RF: 0 albuterol sulfate 90 mcg/actuation Hfa Aerosol Inhaler 1 inh INHALATION QID PRN (Reason: Shortness Of Breath) RF: 0 Stomach Relief 1 tab PO DAILY RF: 0 Discharge Orders: Discharge Order (Routine); Ordered 07/13/20 Ordered By: Helga Dailey Referrals: Shoaib Stephenson MD [Physician] - 1-3 days Elena Cardoso MD [Primary Care Provider] - 1-3 days Discharge Diet: Usual diet Discharge Activity: Resume usual activity Patient Instructions: Chest Pain (ED), Herpes Zoster (ED) Activity Restrictions/Additional Instructions: Please return to the ER immediately for any of the signs or symptoms listed on your discharge instruction sheets, worsening/changing of your symptoms, you are not getting better as quickly as expected, or for ANY other cause or concerns. If you develop chest pain again, you pass out or nearly pass out, or you have any new symptoms that are concerning please return to the ER immediately for recheck and further evaluation and care. Discharge Date/Time: 07/13/20 18:48 Sign Out Sign Out Data: Patient Sign Out occurred on 07/13/20 at 18:15. Patient's care was discussed, and care was transferred from to Helga Dailey. Coding Level of Care Code ED Payroll Administrative Assistant for Charly Fwd Exam Comprehensive
[2020-07-13 17:04] VITALS: BP 159/98; PULSE 86; RESP 16; TEMP 36.8; O2SAT 96; BMI 39.0
--- NOTE | 2020-07-13 17:34 | XRR_ITS ---
PROCEDURE INFORMATION: Exam: XR Chest, 1 View Exam date and time: 07/13/2020 5:45 PM Age: 55 years old Clinical indication: Left-sided chest pain; Patient HX: C/O L sided chest pain w shingles TECHNIQUE: Imaging protocol: XR of the chest Views: 1 view. COMPARISON: CR XR chest 1V portable [id number] 02/29/2020 9:37 PM FINDINGS: Lungs: Unchanged hyperinflation with diffuse mild fibrosis. No consolidation. Pulmonary vascularity is within normal limits. Pleural space: Unremarkable. No pleural effusion. No pneumothorax. Heart/Mediastinum: There is cardiomegaly. Bones/joints: No acute abnormality. XR/XR chest 1V portable [id number] IMPRESSION: No acute findings.
--- NOTE | 2020-07-13 17:34 | ECG_ITS ---
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 Measurements Intervals [place] Rate: 85 P: 37 KS: 162 QRS: 10 QRSD: 105 T: 29 QT: 348 QTc: 415 Interpretive Statements SINUS RHYTHM Compared to ECG 02/29/2020 22:29:59 Ventricular premature complex(es) no longer present Electronically Signed On 07-14-2020 15:16:15 CDT by Isidro Brown M.D. [id number]
[2020-07-13 17:45] VITALS: BP 147/101; RESP 16; O2SAT 96
[2020-07-13 18:23] LABS: Basophils % 0.5 %; Eosinophils # 0.3 10^3/uL (0.0-0.8); Eosinophils % 5.5 %; Hematocrit 44.2 % (42.0-52.0); Hemoglobin 14.6 g/dL (11.7-16.6); Lymphocytes # 1.2 10^3/uL (0.8-4.8); Lymphocytes % 22.3 %; Mean Corpuscular Hemoglobin 29.6 pg (28.0-34.0); Mean Corpuscular Volume 89.5 fL (80-94); Mean Platelet Volume 9.2 fL (7.4-10.4); Monocytes # 0.5 10^3/uL (0.2-0.9); Neutrophils # 3.42 10^3/uL (1.8-7.7); Neutrophils % 62.5 %; Nucleated Red Blood Cells % 0 %; Platelet Count 184 10^3/cmm (130-400); Red Blood Count 4.94 10^6/uL (4.1-5.3); Red Cell Distribution Width 12.1 % (12.1-15.1); White Blood Count 5.5 10^3/uL (4.0-10.0)
[2020-07-13 18:36] LABS: Alanine Aminotransferase 57 U/L (0-41); Albumin Level 4.6 g/dL (3.5-5.2); Alkaline Phosphatase 99 IU/L (40-130); Aspartate Amino Transferase 29 U/L (0-40); Blood Urea Nitrogen 12 mg/dL (6-20); Calcium 9.1 mg/dL (8.5-10.5); Carbon Dioxide 23 mmol/L (22-29); Chloride 100 mmol/L (98-107); Globulin 2.4 g/dL (1.3-4.6); Glomerular Filtration Rate 117.5 mL/min (90-130); Glucose 160 mg/dL (65-115); Osmolality Calculated 278 mOsm/kg (285-295); Sodium 134 mmol/L (136-145); Total Bilirubin 0.3 mg/dL (0.15-1.2)
[2020-07-13 18:38] LABS: Troponin(5th) Baseline 8 ng/L (0-15)
== END 2020-07-13 18:48 | disposition home or self-care (01) ==
PROVIDERS: Family Medicine; Emergency Provider Emergency Medicine; PCP Internal Medicine
DX: B02.8 Zoster with other complications (principal); R07.9 Chest pain, unspecified; J44.9 Chronic obstructive pulmonary disease, unspecified
CPT/HCPCS: 12345; 71045; 80053; 84484; 85025; 93005; 99283

== ENCOUNTER 2021-01-21 20:27 | Emergency (ER) | payer MEDICARE, SELFPAY ==
[2021-01-21 20:42] VITALS: BP 169/102; PULSE 105; RESP 28; O2SAT 92; BMI 36.9
--- NOTE | 2021-01-21 20:53 | XR_ITS ---
WS: [id number] Exam: XR chest 1V portable [id number] Date/Time of Exam: 01/21/2021 8:58 PM Reason For Exam: dyspnea Comparison 07/13/2020. The lungs are clear and fully expanded. Normal cardiomediastinal structures and regional bony element s. No pleural effusions. XR/XR chest 1V portable [id number] IMPRESSION: 1. No acute cardiopulmonary finding. No change.
--- NOTE | 2021-01-21 20:57 | ECG_ITS ---
[facility] Test Date: 2021-01-21 Pat Name: Foreign Hauser Department: Room: Gender: Male Hand Compositor: monica : 1965 Requested By: Nelson Rolon Order Number: [id number] Ivania MD: Gene Mckeon M.D. Measurements Intervals [place] Rate: 103 P: 47 [place]: 149 QRS: 31 QRSD: 98 T: 17 QT: 331 QTc: 435 Interpretive Statements SINUS TACHYCARDIA Compared to ECG 07/13/2020 17:49:03 Sinus rhythm no longer present Electronically Signed On 01-22-2021 17:52:42 CDT by Gene Mckeon M.D. [id number]
[2021-01-21 21:10] VITALS: PULSE 101; RESP 19; O2SAT 93
--- NOTE | 2021-01-21 21:10 | PC.PHAR ---
pt states he takes the medications entered-pt states he fills his medications at [facility] [place] [facility] is closed so no way to verify medications-pt states he takes some kind of otc stomach pill pts states he is unsure of the name but states its a yellow tab
[2021-01-21] MEDS: ipratropium-albuterol 3 mL Neb INHALATION (21:12)
[2021-01-21 21:16] VITALS: PULSE 104
[2021-01-21 21:37] VITALS: BP 150/98; PULSE 104; RESP 18; O2SAT 94
[2021-01-21 21:45] LABS: Basophils # 0.1 10^3/uL (0.0-0.1); Basophils % 0.7 %; Eosinophils # 1.6 10^3/uL (0.0-0.8); Eosinophils % 20.9 %; Hematocrit 42.8 % (42.0-52.0); Hemoglobin 14.1 g/dL (11.7-16.6); Lymphocytes # 1.8 10^3/uL (0.8-4.8); Lymphocytes % 24.3 %; Mean Corpuscular HGB Conc 32.9 g/dL (30.0-36.0); Mean Corpuscular Hemoglobin 29.6 pg (28.0-34.0); Mean Corpuscular Volume 89.7 fL (80-94); Mean Platelet Volume 9.1 fL (7.4-10.4); Monocytes # 0.6 10^3/uL (0.2-0.9); Monocytes % 7.7 %; Neutrophils # 3.41 10^3/uL (1.8-7.7); Neutrophils % 45.9 %; Nucleated Red Blood Cells % 0 %; Platelet Count 221 10^3/cmm (130-400); Red Blood Count 4.77 10^6/uL (4.1-5.3); Red Cell Distribution Width 12.5 % (12.1-15.1); White Blood Count 7.4 10^3/uL (4.0-10.0)
[2021-01-21] MEDS: doxycycline 100 mg Tablet PO (21:45)
[2021-01-21 22:23] LABS: Alanine Aminotransferase 53 U/L (0-41); Albumin Level 4.3 g/dL (3.5-5.2); Alkaline Phosphatase 108 IU/L (40-130); Anion Gap 13.3 (5-19); Aspartate Amino Transferase 28 U/L (0-40); Blood Urea Nitrogen 10 mg/dL (6-20); Calcium 9.4 mg/dL (8.5-10.5); Carbon Dioxide 25 mmol/L (22-29); Chloride 103 mmol/L (98-107); Globulin 2.7 g/dL (1.3-4.6); Glomerular Filtration Rate 100.7 mL/min (90-130); Glucose 122 mg/dL (65-115); Lactic Sepsis W/Reflex 1.4 mmol/L (0.5-2.2); Osmolality Calculated 284 mOsm/kg (285-295); Potassium 4.3 mmol/L (3.5-5.1); Sodium 137 mmol/L (136-145); Total Bilirubin 0.3 mg/dL (0.15-1.2)
[2021-01-21 22:25] LABS: Troponin(5th) Baseline 9 ng/L (0-15)
--- NOTE | 2021-01-21 22:37 | ED_ITS ---
HPI - SOB/Dyspnea General: Chief Complaint: Shortness of Breath/Dyspnea Stated Complaint: trouble breathing/lung issues Time Seen by Provider: 01/21/21 20:47 History of Present Illness: HPI Narrative: The patient is a 55-year-old male with past medical history farmers lung causing a COPD-like illness several years ago. Since then he gets occasional exacerbations of his airway problem requiring antibiotics and steroids. Approximately a week or 2 ago he started to get short of breath and wheezy which was resistant to the albuterol inhaler he has and saw his primary care physician who gave him an antibiotic and steroid. He says it did not help and he continued to wheeze and today he is worse, wheezy, and short of breath. Denies chest pain MD elicited complaint: shortness of breath and asthma attack Pertinent past history: COPD Severity: moderate Exacerbating factors: exertion Relieving factors: nothing Known history of: COPD Associated symptoms: Reports no associated symptoms; Deny abdominal pain, chest pain, dizziness, extremity pain, orthopnea, palpitations or polyuria Review of Systems General: Reports: 10 or more systems reviewed and unremarkable except in HPI and below Const: Denies: fatigue Eyes: Denies: change in vision, blurry vision or eye redness ENMT: Denies: throat pain, swelling of lips/tongue, ear or mastoid pain or nasal congestion Card: Denies: chest pain, palpitations, irregular heart rhythm, edema, dyspnea on exertion or orthopnea Resp: Reports: dyspnea and wheezing; Denies: productive cough or non-productive cough GI: Denies: abdominal pain, diarrhea or GI cramping : Denies: flank pain, urinary frequency or urinary urgency Musc: Denies: neck pain, back pain, extremity pain, joint pain, joint redness, limited range of motion or muscle weakness Skin/Breast: Denies: rash, pruritus, erythema, skin pain or skin tenderness Neuro: Denies: headache(s), numbness in extremities, weakness in extremities, sensory changes, difficulty walking, dizziness, confusion or Slurred speech present Psych: Denies: anxiety or depression Endo: Denies: polyuria All/Imm: Denies: urticaria, throat swelling or tongue swelling PFSH ED PFSH: Medical History (Updated 01/21/21 @ 22:37 by Nelson Rolon MD) COPD (chronic obstructive pulmonary disease) Hypothyroidism Social History Smoking and tobacco status: never smoked Alcohol intake: never Physical Exam Const: COMMON NORMALS: no acute distress, average body habitus, patient oriented x3, no limitations, healthy appearing, alert and well nourished GENERAL APPEARANCE: cooperative, comfortable, well kempt and well developed ORIENTATION/CONSCIOUSNESS: Yes awake, Yes oriented to person, Yes oriented to place and Yes oriented to time HENMT: COMMON NORMALS: normocephalic, external ears normal and Normal external nose present HEAD & SCALP: normal to inspection and normocephalic NOSE: Normal external nose present EXTERNAL EAR: Yes external ears normal MOUTH: Normal oral and palatal mucosa present THROAT: posterior oropharynx normal Eye: COMMON NORMALS: Equal, round and reactive pupils present and EOMs intact bilaterally GENERAL EYE: appearance normal, both eyes and all related structures PUPIL: Yes Equal, round and reactive pupils present Neck/C-Spine: COMMON NORMALS: full ROM, no lymphadenopathy, no meningeal signs and no JVD GENERAL: Yes normal visual inspection Lymph: LYMPHATIC: no lymphadenopathy noted Chest: COMMONS NORMALS: normal inspection of the chest and normal palpation of entire chest wall Resp: COMMON NORMALS: normal respiratory effort, No retractions, No use of accessory muscles and percussion normal EFFORT & INSPECTION: Yes able to speak in complete sentences AUSCULTATION: wheezes and diminished lung sounds PERCUSSION: percussion normal Cardio: COMMON NORMALS: no JVD, regular rhythm, S1 normal heart sound present, S2 normal heart sound present and Peripheral pulses 2+ throughout RATE: tachycardic RHYTHM: regular rhythm HEART SOUNDS: S1 normal heart sound present and S2 normal heart sound present PERIPHERAL PULSES: Peripheral pulses 2+ throughout GI: COMMON NORMALS: Normal to inspection, nondistended, normoactive bowel sounds present, Soft to palpation, non-tender and no masses INSPECTION: Yes normal to inspection PALPATION: Yes Soft to palpation : COMMON NORMALS: Yes no CVA tenderness BLADDER/KIDNEY EXAM: Yes no CVA tenderness Back/Pelvis: COMMON NORMALS: no CVA tenderness, thoracic and lumbar spine n ormal to inspection, no thoracic nor lumbar tenderness and thoraco-lumbar ROM normal Extremity: COMMON NORMALS: normal to inspection, full ROM, capillary refill normal, no joint enlargement and no pedal edema GENERAL: Yes normal exam except as noted Neuro: COMMON NORMALS: patient oriented x3, CN's II-XII intact bilaterally, moves all extremities, no focal motor deficits, no sensory deficits noted and gait normal SENSORIUM/ORIENTATION: Yes alert, Yes oriented to person, Yes oriented to place and Yes oriented to time MENINGEAL SIGNS: Yes no meningeal signs Psych: COMMON NORMALS: mental status grossly normal, Normal thought process present, cooperative, normal affect and speech normal APPEARANCE: Yes well kempt ATTITUDE: Yes calm SPEECH: Yes normal speech THOUGHT PROCESS: Normal thought process present Skin: COMMON NORMALS: no rashes or lesions noted GENERAL SKIN EXAM: no rashes or lesions noted Course Vital Signs: Vital signs: Vital Signs Pulse Rate 104 H 01/21/21 21:37 Respiratory Rate 18 01/21/21 21:37 Blood Pressure 150/98 01/21/21 21:37 Pulse Oximetry 94 01/21/21 21:37 MDM - SOB/Dyspnea MDM Narrative: Medical decision making narrative: The patient comes in with a COPD-like illness related to his old farmers lung. He is wheezing. He was given a DuoNeb and Solu-Medrol with improvement of his symptoms significantly. He is now requesting discharge. We will send him home with doxycycline, Medrol Dosepak. He has albuterol inhaler and nebulizers at home as well as his Advair. ER with worsening symptoms otherwise primary care in a couple days. Lab Data: Labs: Lab Results 01/21/21 01/21/21 01/21/21 Range/Units 21:30 21:30 21:30 WBC 7.4 (4.0-10.0) 10^3/ uL RBC 4.77 (4.1-5.3) 10^6/u L Hgb 14.1 (11.7-16.6) g/dL Hct 42.8 (42.0-52.0) % MCV 89.7 (80-94) fL MCH 29.6 (28.0-34.0) pg MCHC 32.9 (30.0-36.0) g/dL RDW 12.5 (12.1-15.1) % Plt Count 221 (130-400) 10^3/c mm MPV 9.1 (7.4-10.4) fL Neut % (Auto) 45.9 % Lymph % (Auto) 24.3 % [place] % (Auto) 7.7 % Eos % (Auto) 20.9 % Baso % (Auto) 0.7 % Neut # (Auto) 3.41 (1.8-7.7) 10^3/u L Lymph # (Auto) 1.8 (0.8-4.8) 10^3/u L [place] # (Auto) 0.6 (0.2-0.9) 10^3/u L Eos # (Auto) 1.6 H (0.0-0.8) 10^3/u L Baso # (Auto) 0.1 (0.0-0.1) 10^3/u L Nucleated RBC % (a uto) 0 % Nucleated RBCs # 0.0 /100WBC Sodium 137 (136-145) mmol/L Potassium 4.3 (3.5-5.1) mmol/L Chloride 103 (98-107) mmol/L Carbon Dioxide 25 (22-29) mmol/L Anion Gap 13.3 (5-19) BUN 10 (6-20) mg/dL Creatinine 0.8 (0.7-1.2) mg/dL GFR Calculation 100.7 (90-130) mL/min Glucose 122 H (65-115) mg/dL Calculated Osmolal ity 284 L (285-295) mOsm/k g Lactic Acid 1.4 (0.5-2.2) mmol/L Calcium 9.4 (8.5-10.5) mg/dL Total Bilirubin 0.3 (0.15-1.2) mg/dL AST 28 (0-40) U/L ALT 53 H (0-41) U/L Alkaline Phosphata se 108 (40-130) IU/L Troponin T Baselin e (0-15) ng/L Total Protein 7.0 (6.6-8.7) g/dL Albumin 4.3 (3.5-5.2) g/dL Globulin 2.7 (1.3-4.6) g/dL 01/21/21 Range/Units 21:30 WBC (4.0-10.0) 10^3/ uL RBC (4.1-5.3) 10^6/u L Hgb (11.7-16.6) g/dL Hct (42.0-52.0) % MCV (80-94) fL MCH (28.0-34.0) pg MCHC (30.0-36.0) g/dL RDW (12.1-15.1) % Plt Count (130-400) 10^3/c mm MPV (7.4-10.4) fL Neut % (Auto) % Lymph % (Auto) % [place] % (Auto) % Eos % (Auto) % Baso % (Auto) % Neut # (Auto) (1.8-7.7) 10^3/u L Lymph # (Auto) (0.8-4.8) 10^3/u L [place] # (Auto) (0.2-0.9) 10^3/u L Eos # (Auto) (0.0-0.8) 10^3/u L Baso # (Auto) (0.0-0.1) 10^3/u L Nucleated RBC % (a uto) % Nucleated RBCs # /100WBC Sodium (136-145) mmol/L Potassium (3.5-5.1) mmol/L Chloride (98-107) mmol/L Carbon Dioxide (22-29) mmol/L Anion Gap (5-19) BUN (6-20) mg/dL Creatinine (0.7-1.2) mg/dL GFR Calculation (90-130) mL/min Glucose (65-115) mg/dL Calculated Osmolal ity (285-295) mOsm/k g Lactic Acid (0.5-2.2) mmol/L Calcium (8.5-10.5) mg/dL Total Bilirubin (0.15-1.2) mg/dL AST (0-40) U/L ALT (0-41) U/L Alkaline Phosphata se (40-130) IU/L Troponin T Baselin e 9 (0-15) ng/L Total Protein (6.6-8.7) g/dL Albumin (3.5-5.2) g/dL Globulin (1.3-4.6) g/dL Discharge Plan Discharge Patient Disposition: Home Clinical Impression: COPD (chronic obstructive pulmonary disease) Condition: Stable Prescriptions: New Medrol (Doug) 4 mg tablets,dose pack See Rx Instructions .ROUTE .COMPLEX Qty: 21 RF: 0 doxycycline hyclate 100 mg capsule 100 mg PO BID 10 Days Qty: 20 RF: 0 No Action fluticasone propion-salmeterol [Advair Diskus] 250-50 mcg/dose Blister With Device 1 inh INHALATION BID RF: 0 levothyroxine 50 mcg Tablet 50 mcg PO DAILY@05 RF: 0 ibuprofen 200 mg Tablet 400 mg PO DAILY@05 RF: 0 albuterol sulfate 90 mcg/actuation Hfa Aerosol Inhaler 2 puff INHALATION Q4H PRN (Reason: Shortness Of Breath) RF: 0 Stomach Pill Otc 1 tab PO DAILY@05 RF: 0 Discharge Orders: Discharge ED (Routine); Ordered 01/21/21 Ordered By: Nelson Rolon Referrals: Elena Cardoso MD [Primary Care Provider] - Discharge Diet: Advance as tolerated Discharge Activity: Resume usual activity Patient Instructions: Chronic Obstructive Pulmonary Disease (ED), Opioid Safety Activity Restrictions/Additional Instructions: You are likely having an exacerbation of your airway problem. Please continue to take albuterol at home and start taking doxycycline and the Medrol Dosepak to help with your symptoms. Return to the ER at anytime with worsening symptoms otherwise follow-up with your primary care physician in 2 to 3 days to monitor improvement. 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
[2021-01-21 22:43] VITALS: BP 135/92; PULSE 102; RESP 14; O2SAT 93
== END 2021-01-21 22:44 | disposition home or self-care (01) ==
PROVIDERS: Emergency Provider Family Medicine; PCP Internal Medicine
DX: J44.9 Chronic obstructive pulmonary disease, unspecified (principal)
CPT/HCPCS: 71045; 80053; 83605; 84484; 85025; 93005; 94640; 96374; 99284; J2930

== ENCOUNTER 2021-01-23 15:25 | Outpatient (CLI) | payer MEDICARE, SELFPAY ==
[2021-01-23 16:20] LABS: NT Pro B Type Natriuretic Pept 40 pg/mL (0-125)
[2021-01-24 17:57] LABS: Alternaria Alternata (M6) Ige 6.05 kU/L; Alternaria Class 3; Bermuda Class 2; Bermuda Grass (G2) Ige 1.77 kU/L; Cat Dander (E1) Ige 0.21 kU/L; Cat Dander Class 0/1; Common Ragweed (Short) (W1) Ig 4.93 kU/L; D. Farinae Class 2; Dermatophagoides Class 0/1; Dermatophagoides Farinae (D2) 0.71 kU/L; Dermatophagoides Pteronyssinus 0.33 kU/L; Dog Dander (E5) Ige 0.39 kU/L; Dog Dander Class 1; Elm (T8) Ige 1.77 kU/L; Elm Class 2; English Plantain (W9) Ige 1.34 kU/L; English Plantain Class 2; House Dust (Greer) (H1) Ige 0.47 kU/L; House Dust (Hollister- Stier) 0.52 kU/L; House Dust Class 1; Immunoglobulin E 434 kU/L (<OR=114); Johnson Grass (G10) Ige 1.46 kU/L; Johnson Grass Cl 2; June Grass Class 2; June Grass(Kentucky Blue) (G8) 2.18 kU/L; Lamb'S Quarters (Goose Foot) 1.58 kU/L; Lamb'S Quarters Class 2; Maple (Box Elder) (T1) Ige 1.56 kU/L; Maple Class 2; Meadow Fescue (G4) Ige 2.25 kU/L; Meadow Fescue Class 2; Mucor Racemosus Class 0/1; Oak (T7) Ige 1.44 kU/L; Oak Class 2; Orchard Grass (Cocksfoot) (G3) 2.15 kU/L; Penicillium Class 0/1; Penicillium Notatum (M1) Ige 0.31 kU/L; Perennial Rye Grass (G5) Ige 2.13 kU/L; Perennial Rye Grass Class 2; Ragweeed Class 3; Rough Marsh Elder (W16) Ige 1.87 kU/L; Rough Marsh Elder Class 2; Sweet Vernal Class 2; Sweet Vernal Grass (G1) Ige 1.95 kU/L; Timothy Grass (G6) Ige 2.14 kU/L; Timothy Grass Class 2
[2021-01-24 17:58] LABS: Immunoglobulin E 445 kU/L (<OR=114)
[2021-01-27 18:24] LABS: Aspergillus Fumigatus, Igg Ab, 25.6 mg/L (<=102)
== END 2021-01-23 15:26 | disposition home or self-care (01) ==
PROVIDERS: PCP Internal Medicine; Visit Provider Internal Medicine Pulmonary Disease
DX: T78.40XA Allergy, unspecified, initial encounter (principal)
CPT/HCPCS: 36415; 82785; 83880; 86003